=== PATIENT | male | born 1960 ===

== ENCOUNTER 2018-03-21 10:52 | Emergency (ER) | payer BC, OTHER ==
[2018-03-21] MEDS ORDERED: Sodium Chloride 0.9% 10 ML Syringe FLUSH ONE (11:06)
[2018-03-21] MEDS ORDERED: Iopamidol 755 Mg/ML 100 ML Bottle IVPUSH ONE (11:06)
[2018-03-21] MEDS ORDERED: Ondansetron 4 MG/2 ML SDV IVPUSH ONE (11:07)
[2018-03-21] MEDS ORDERED: Sodium Chloride 0.9% 10 ML Syringe FLUSH PRN ×2 (11:07→11:11)
[2018-03-21] MEDS ORDERED: HYDROmorphone 0.5 MG/0.5 ML SYRINGE IVPUSH ONE (11:07)
[2018-03-21] MEDS ORDERED: Sodium Chloride 0.9% 1,000 ML IV ONE ×2 (11:07→11:08)
--- NOTE | 2018-03-21 11:11 | EDM.PDOC ---
ED HPI GENERAL MEDICAL PROBLEM - General Chief Complaint: Abdominal Pain Stated Complaint: ABDOMINAL PAIN Time Seen by Provider: 03/21/18 11:00 Source of Information: Reports: Patient History Limitations: Reports: No Limitations - History of Present Illness INITIAL COMMENTS - FREE TEXT/NARRATIVE: 57-year-old male presents for evaluation and treatment of abdominal pain. Reportedly the abdominal pain began suddenly around 8 AM this morning. He identifies pain to the suprapubic region and lower abdomen. Describes the pain as severe gas pains. Difficulty obtaining a history and performing physical due to the distress he is in. He arrives diaphoretic and in obvious pain. He is moaning and fidgeting on the cot. He reports nausea and lightheadedness. No vomiting, syncope or chest pain. Reports difficulty urinating. States his urine is only dribbling out. States he has never had anything like this before. No known history of any problems with his aorta such as aneurism. Blood pressure and heart rate noted to be low. Taken to CT right away due to concerns over an aneurysm. No history of any abdominal surgeries. Onset: Today, Sudden Location: Reports: Abdomen Right Lower Abdominal Pain Score (Numeric/FACES): 10 - Related Data Allergies Allergy/AdvReac Type Severity Reaction Status Date / Time No Known Allergies Allergy Verified 03/21/18 11:01 Home Meds: Home Meds amLODIPine Besylate [Amlodipine Besylate] 10 mg PO DAILY 03/21/18 [History] Past Medical History - Past Health History Medical/Surgical History: Denies Medical/Surgical History Cardiovascular History: Reports: Hypertension Social & Family History - Tobacco Use Smoking Status *Q: Unknown Ever Smoked ED ROS GENERAL - Review of Systems Review Of Systems: See Below Cardiovascular: Reports: Lightheadedness. Denies: Chest Pain, Syncope GI/Abdominal: Reports: Abdominal Pain (identified pain in the suprapubic region) , Nausea. Denies: Vomiting : Reports: Other (reports difficulty urinating, reports urine is only dribbling) ED EXAM, GI/ABD - Physical Exam Exam: See Below Exam Limited By: No Limitations General Appearance: Alert, WD/WN, Moderate Distress, Thin Respiratory/Chest: No Respiratory Distress, Lungs Clear, Normal Breath Sounds Cardiovascular: Normal Peripheral Pulses, Regular Rate, Rhythm, No Murmur GI/Abdominal Exam: Normal Bowel Sounds, Soft, Guarding, Tender (suprapubic) Neurological: Alert, Oriented, Normal Cognition Psychiatric: Normal Affect, Normal Mood Skin Exam: Warm, Dry, Normal Color EKG INTERPRETATION EKG Date: 03/21/18 Time: 11:30 Rhythm: NSR Rate (Beats/Min): 57 [place]: Normal P-Wave: Present QRS: Normal ST-T: Normal QT: Normal EKG Interpretation Comments: NSR at 57 bpm. No acute changes. Reviewed by myself and Dr. Gaffney. Course - Vital Signs Last Recorded V/S: Last Vital Signs Temp 98.1 F 03/21/18 10:57 Pulse 48 L 03/21/18 10:57 Resp 20 03/21/18 10:57 BP 107/70 03/21/18 10:57 Pulse Ox - Orders/Labs/Meds Orders: Active Orders 24 hr Category Date Time Status Cardiac Monitoring [RC] . DIRECTED Care 03/21/18 11:07 Active EKG Documentation Completion [RC] ASDIRECTED Care 03/21/18 11:07 Active Peripheral IV Care [RC] . DIRECTED Care 03/21/18 11:07 Active Peripheral IV Care [RC] . DIRECTED Care 03/21/18 11:11 Active UA W/MICROSCOPIC [URIN] Stat Lab 03/21/18 12:00 Ordered Sodium Chloride 0.9% [Normal Saline] 100 ml Med 03/21/18 11:15 Active IV ASDIRECTED Sodium Chloride 0.9% [Saline Flush] Med 03/21/18 11:07 Active 10 ml FLUSH ASDIRECTED PRN Sodium Chloride 0.9% [Saline Flush] Med 03/21/18 11:11 Active 10 ml FLUSH ASDIRECTED PRN Peripheral IV Insertion Adult [OM.PC] Routine Oth 03/21/18 11:06 Ordered Peripheral IV Insertion Adult [OM.PC] Routine Oth 03/21/18 11:11 Ordered EKG 12 Lead [EK] Stat Ther 03/21/18 11:07 Ordered Medication Orders Sodium Chloride (Normal Saline) 100 mls @ 60 mls/hr IV ASDIRECTED SKYLER Last Admin: 03/21/18 11:19 Dose: 60 mls/hr Sodium Chloride (Saline Flush) 10 ml FLUSH ASDIRECTED PRN PRN Reason: Keep Vein Open Last Admin: 03/21/18 11:18 Dose: 10 ml Sodium Chloride (Saline Flush) 10 ml FLUSH ASDIRECTED PRN PRN Reason: Keep Vein Open Labs: Laboratory Tests 03/21/18 03/21/18 03/21/18 Range/Units 11:30 11:30 11:30 WBC 5.48 (4.23-9.07) K/mm3 RBC 4.07 L (4.63-6.08) M/mm3 Hgb 12.3 L (13.7-17.5) gm/L Hct 36.4 L (40.1-51.0) % MCV 89.4 (79.0-92.2) fl MCH 30.2 (25.7-32.2) pg MCHC 33.8 (32.2-35.5) g/dl RDW Std Deviation 42.5 (35.1-43.9) fL Plt Count 236 (163-337) K/mm3 MPV 9.4 (9.4-12.3) fl Neutrophils % (Manual) 56 (40-60) % Band Neutrophils % 0 (0-10) % Lymphocytes % (Manual) 42 H (20-40) % Atypical Lymphs % 0 % Monocytes % (Manual) 1 L (2-10) % Eosinophils % (Manual) 1 (0.8-7.0) % Basophils % (Manual) 0 L (0.2-1.2) Platelet Estimate Adequate RBC Morph Comment Normal PT 11.7 (9.5-12.1) SECONDS INR 1.07 APTT 23 L (24-31) SECONDS Sodium 138 (136-145) mEq/L Potassium 3.5 (3.5-5.1) mEq/L Chloride 106 (98-107) mEq/L Carbon Dioxide 22 (21-32) mEq/L Anion Gap 13.5 (5-15) BUN 13 (7-18) mg/dL Creatinine 1.2 (0.7-1.3) mg/dL Est Cr Clr Drug Dosing 57.66 mL/min Estimated GFR (MDRD) > 60 (>60) mL/min BUN/Creatinine Ratio 10.8 L (14-18) Glucose 138 H (74-106) mg/dL Calcium 8.5 (8.5-10.1) mg/dL Total Bilirubin 0.4 (0.2-1.0) mg/dL AST 20 (15-37) U/L ALT 33 (16-63) U/L Alkaline Phosphatase 102 (46-116) U/L C-Reactive Protein < 0.2 (<1.0) mg/dL Total Protein 5.9 L (6.4-8.2) g/dl Albumin 3.0 L (3.4-5.0) g/dl Globulin 2.9 gm/dL Albumin/Globulin Ratio 1.0 (1-2) Urine Color (Yellow) Urine Appearance (Clear) Urine pH (5.0-8.0) Ur Specific [place] (1.005-1.030) Urine Protein (Negative) Urine Glucose (UA) (Negative) Urine Ketones (Negative) Urine Occult Blood (Negative) Urine Nitrite (Negative) Urine Bilirubin (Negative) Urine Urobilinogen (0.2-1.0) Ur Leukocyte Esterase (Negative) Urine RBC (0-5) /hpf Urine WBC (0-5) /hpf Ur Epithelial Cells (0-5) /hpf Urine Bacteria (FEW) /hpf Urine Mucus (FEW) /hpf Blood Type Gel Antibody Screen 03/21/18 03/21/18 Range/Units 11:30 12:00 WBC (4.23-9.07) K/mm3 RBC (4.63-6.08) M/mm3 Hgb (13.7-17.5) gm/L Hct (40.1-51.0) % MCV (79.0-92.2) fl MCH (25.7-32.2) pg MCHC (32.2-35.5) g/dl RDW Std Deviation (35.1-43.9) fL Plt Count (163-337) K/mm3 MPV (9.4-12.3) fl Neutrophils % (Manual) (40-60) % Band Neutrophils % (0-10) % Lymphocytes % (Manual) (20-40) % Atypical Lymphs % % Monocytes % (Manual) (2-10) % Eosinophils % (Manual) (0.8-7.0) % Basophils % (Manual) (0.2-1.2) Platelet Estimate RBC Morph Comment PT (9.5-12.1) SECONDS INR APTT (24-31) SECONDS Sodium (136-145) mEq/L Potassium (3.5-5.1) mEq/L Chloride (98-107) mEq/L Carbon Dioxide (21-32) mEq/L Anion Gap (5-15) BUN (7-18) mg/dL Creatinine (0.7-1.3) mg/dL Est Cr Clr Drug Dosing mL/min Estimated GFR (MDRD) (>60) mL/min BUN/Creatinine Ratio (14-18) Glucose (74-106) mg/dL Calcium (8.5-10.1) mg/dL Total Bilirubin (0.2-1.0) mg/dL AST (15-37) U/L ALT (16-63) U/L Alkaline Phosphatase (46-116) U/L C-Reactive Protein (<1.0) mg/dL Total Protein (6.4-8.2) g/dl Albumin (3.4-5.0) g/dl Globulin gm/dL Albumin/Globulin Ratio (1-2) Urine Color Yellow (Yellow) Urine Appearance Clear (Clear) Urine pH 8.0 (5.0-8.0) Ur Specific [place] 1.015 (1.005-1.030) Urine Protein Negative (Negative) Urine Glucose (UA) Negative (Negative) Urine Ketones Negative (Negative) Urine Occult Blood 2+ H (Negative) Urine Nitrite Negative (Negative) Urine Bilirubin Negative (Negative) Urine Urobilinogen 0.2 (0.2-1.0) Ur Leukocyte Esterase Negative (Negative) Urine RBC 5-10 H (0-5) /hpf Urine WBC 0-5 (0-5) /hpf Ur Epithelial Cells Not seen (0-5) /hpf Urine Bacteria Few (FEW) /hpf Urine Mucus Few (FEW) /hpf Blood Type O POSITIVE Gel Antibody Screen Negative Meds: Medications Generic Name Dose Route Start Last Admin Trade Name Freq PRN Reason Stop Dose Admin Sodium Chloride 100 mls @ 60 mls/hr 03/21/18 11:15 03/21/18 11:19 Normal Saline IV 60 mls/hr ASDIRECTED SKYLER Administration Sodium Chloride 10 ml 03/21/18 11:07 03/21/18 11:18 Saline Flush FLUSH 10 ml ASDIRECTED PRN Administration Keep Vein Open Sodium Chloride 10 ml 03/21/18 11:11 Saline Flush FLUSH ASDIRECTED PRN Keep Vein Open Discontinued Medications Generic Name Dose Route Start Last Admin Trade Name Freq PRN Reason Stop Dose Admin Hydromorphone HCl 1 mg 03/21/18 11:07 03/21/18 11:12 Dilaudid IVPUSH 03/21/18 11:08 1 mg ONETIME ONE Administration Sodium Chloride 1,000 mls @ 999 mls/hr 03/21/18 11:07 03/21/18 11:10 Normal Saline IV 03/21/18 12:07 999 mls/hr ONETIME ONE Administration Sodium Chloride 1,000 mls @ 999 mls/hr 03/21/18 11:08 03/21/18 12:08 Normal Saline IV 03/21/18 12:08 Not Given ONETIME ONE Iopamidol 100 ml 03/21/18 11:06 03/21/18 11:18 Isovue-370 (76%) IVPUSH 03/21/18 11:07 100 ml ONETIME ONE Administration Ondansetron HCl 4 mg 03/21/18 11:07 03/21/18 11:12 Zofran IVPUSH 03/21/18 11:08 4 mg ONETIME ONE Administration Sodium Chloride 10 ml 03/21/18 11:06 03/21/18 11:13 Saline Flush FLUSH 03/21/18 11:07 10 ml ONETIME ONE Administration - Radiology Interpretation Free Text/Narrative:: CT abdomen and pelvis Technique: Multiple axial sections were obtained from above the dome of the diaphragm inferiorly through the pubic symphysis. Imaging obtained after contrast administration during the arterial phase. Findings: Aorta shows no aneurysm. Celiac axis and superior mesenteric arteries are patent. No renal artery stenosis is seen. Inferior mesenteric artery is patent. Common iliac arteries as well as proximal internal and external iliac arteries appear within normal limits. Common femoral arteries are patent. Visualized lung bases shows nothing acute. Liver shows no focal parenchymal abnormality. Spleen appears within normal limits. Adrenal glands show no nodule. Kidneys show symmetric contrast enhancement with no hydronephrosis or mass. Pancreas is within normal limits. No retroperitoneal adenopathy is seen. Gallbladder contains no calcified gallstones. No mesenteric abnormalities are seen. No pelvic mass or adenopathy is seen. Bilateral fat-containing inguinal hernias are noted. Soft tissue density is seen off the tip of this cecum containing several calcifications. Appendix is not visualized with certainty. Findings could represent a chronic appendicitis containing appendicoliths. Findings could also represent scarring. Bone window settings were reviewed which shows scattered degenerative change within the spine most severe at L5-S1 severe disc space narrowing, vacuum phenomena and prominent anterior osteophytes. Impression: 1. Soft tissue density inferior to the tip of the cecum containing several calcifications. As mentioned above, this could represent chronic appendicitis with this soft tissue density containing appendicoliths. Findings could also represent scarring if there are no right lower quadrant symptoms. 2. Aorta and branch vessels appear within normal limits. No aneurysm or stenosis is seen. 3. Other incidental findings as noted above. - Re-Assessments/Exams Free Text/Narrative Re-Assessment/Exam: 03/21/18 14:09 I reviewed the labs, EKG and imaging with the patient. He has now been pain- free after receiving Dilaudid. I reinspected the patient since he is now pain free. No RLQ tenderness. No history of RLQ pain. Negative psosas sign. Negative obturator sign. Reports normally has trouble with bloating. Case discussed with Dr. Mosley, surgery on-call. She has come to the ED and reviewed the images. Concern for tumor of the appendix. Recommend an MRI to further evaluate. Patient's acute pain today was likely caused by him passing a kidney stone as he had does have 2+ microscopic hematuria. He has been pain-free for several hours here in the ED. Plan will be to obtain an MRI Wednesday. He will then follow-up with Dr. Mosley here in the ED on Wednesday. discharge instructions as documented. Departure - Departure Time of Disposition: 14:10 Disposition: Home, Self-Care 01 Condition: Fair Clinical Impression: Nephrolithiasis, Appendicolith, Cecum mass - Discharge Information *PRESCRIPTION DRUG MONITORING PROGRAM REVIEWED*: No *COPY OF PRESCRIPTION DRUG MONITORING REPORT IN PATIENT MARY: No Instructions: Kidney Stones, [id number] Referrals: Rashard Oliver MD [Primary Care Provider] - Katya Mosley MD [Physician] - Forms: ED Department Discharge Additional Instructions: Nothing to eat or drink after midnight tonight. you will have an MRI of your abdomen at 9:30 AM tomorrow. Check in at the main [facility] entrance of the hospital. Follow-up with Dr. Mosley, surgeon on-call, on Wednesday through the ED. Arrive around noon she will see you through the ED. make sure you are drinking plenty of fluids. Please return to ER for symptoms change or worsen. - My Orders Last 24 Hours: My Active Orders 03/21/18 11:06 Peripheral IV Insertion Adult [OM.PC] Routine 03/21/18 11:07 Cardiac Monitoring [RC] . DIRECTED EKG Documentation Completion [RC] ASDIRECTED Peripheral IV Care [RC] . DIRECTED Sodium Chloride 0.9% [Saline Flush] 10 ml FLUSH ASDIRECTED PRN EKG 12 Lead [EK] Stat 03/21/18 11:11 Peripheral IV Care [RC] . DIRECTED Sodium Chloride 0.9% [Saline Flush] 10 ml FLUSH ASDIRECTED PRN Peripheral IV Insertion Adult [OM.PC] Routine 03/21/18 11:15 Sodium Chloride 0.9% [Normal Saline] 100 ml IV ASDIRECTED 03/21/18 12:00 UA W/MICROSCOPIC [URIN] Stat - Assessment/Plan Last 24 Hours: My Active Orders 03/21/18 11:06 Peripheral IV Insertion Adult [OM.PC] Routine 03/21/18 11:07 Cardiac Monitoring [RC] . DIRECTED EKG Documentation Completion [RC] ASDIRECTED Peripheral IV Care [RC] . DIRECTED Sodium Chloride 0.9% [Saline Flush] 10 ml FLUSH ASDIRECTED PRN EKG 12 Lead [EK] Stat 03/21/18 11:11 Peripheral IV Care [RC] . DIRECTED Sodium Chloride 0.9% [Saline Flush] 10 ml FLUSH ASDIRECTED PRN Peripheral IV Insertion Adult [OM.PC] Routine 03/21/18 11:15 Sodium Chloride 0.9% [Normal Saline] 100 ml IV ASDIRECTED 03/21/18 12:00 UA W/MICROSCOPIC [URIN] Stat
[2018-03-21] MEDS ORDERED: Sodium Chloride 0.9% 100 ML IV SCH (11:15)
--- NOTE | 2018-03-21 13:13 | CT ---
CT abdomen and pelvis Technique: Multiple axial sections were obtained from above the dome of the diaphragm inferiorly through the pubic symphysis. Imaging obtained after contrast administration during the arterial phase. Findings: Aorta shows no aneurysm. Celiac axis and superior mesenteric arteries are patent. No renal artery stenosis is seen. Inferior mesenteric artery is patent. Common iliac arteries as well as proximal internal and external iliac arteries appear within normal limits. Common femoral arteries are patent. Visualized lung bases shows nothing acute. Liver shows no focal parenchymal abnormality. Spleen appears within normal limits. Adrenal glands show no nodule. Kidneys show symmetric contrast enhancement with no hydronephrosis or mass. Pancreas is within normal limits. No retroperitoneal adenopathy is seen. Gallbladder contains no calcified gallstones. No mesenteric abnormalities are seen. No pelvic mass or adenopathy is seen. Bilateral fat-containing inguinal hernias are noted. Soft tissue density is seen off the tip of this cecum containing several calcifications. Appendix is not visualized with certainty. Findings could represent a chronic appendicitis containing appendicoliths. Findings could also represent scarring. Bone window settings were reviewed which shows scattered degenerative change within the spine most severe at L5-S1 severe disc space narrowing, vacuum phenomena and prominent anterior osteophytes. Impression: 1. Soft tissue density inferior to the tip of the cecum containing several calcifications. As mentioned above, this could represent chronic appendicitis with this soft tissue density containing appendicoliths. Findings could also represent scarring if there are no right lower quadrant symptoms. 2. Aorta and branch vessels appear within normal limits. No aneurysm or stenosis is seen. 3. Other incidental findings as noted above. Diagnostic code #3
== END 2018-03-21 14:55 | disposition home or self-care (01) ==
LOC: JD.ED 10:52
DX: N20.0 Calculus of kidney (principal); K38.1 Appendicular concretions; K63.89 Other specified diseases of intestine; I10 Essential (primary) hypertension; Z79.899 Other long term (current) drug therapy
CPT/HCPCS: 36415; 74177; 80053; 81001; 85007; 85027; 85610; 85730; 86140; 86850; 86900; 86901; 93005; 96361; 96374; 99285; J1170; J2405; J7030; J7040; J7050; Q9967; 99284